=== PATIENT | female | born 1985 | race Caucasian/White ===

== ENCOUNTER 2016-10-25 00:30 | Inpatient (IN) | payer OTHER ==
[2016-10-25] MEDS ORDERED: WITCH HAZEL 50% (TUCKS) 40 PAD/JAR PAD TP PRN (01:32)
[2016-10-25] MEDS ORDERED: BENZOCAINE 28 GM HEMORRHOIDAL OINTMENT TP PRN (01:32)
[2016-10-25] MEDS ORDERED: BENZOCAINE 20% 57 GM BOTTLE TP PRN (01:32)
[2016-10-25] MEDS ORDERED: BISACODYL 10 MG SUPP.RECT RC PRN (01:32)
[2016-10-25] MEDS ORDERED: METHYLERGONOVINE MALEATE 0.2 MG/1 ML AMP IM PRN (01:32)
--- NOTE | 2016-10-25 01:37 | HP ---
Admitting History and Physical - Admission Chief Complaint: labor pains History of Present Illness: 31 y/o at term returns with contractions and fully dilated. Pt of [facility]. History Source: Patient Limitations to Obtaining History: No Limitations - Past Medical History W[employer]: No: Alzheimer's, CVA, Dementia, Migraine, Multiple Sclerosis, Peripheral Neuropathy, Parkinson's, Seizure, Syncope, TIA, Vertigo, Other Cardiovascular: No: AFIB, Aneurysm, Aortic Insufficiency, Aortic Stenosis, CAD, CHF, Deep Vein Thrombosis, HTN, Hyperlipdemia, [place], Mitral Insufficiency, Mitral Stenosis, Murmur, Pulmonary Hypertension, Other Pulmonary: No: Asthma, Bronchitis, Cancer, COPD, O2 Dependent, Pneumonia, Previously Intubated, Pulmonary Embolus, Pulmonary Fibrosis, Sleep Apnea, Other Gastrointestinal: No: Ascites, Cancer, Constipation, Crohn's Disease, Diverticulitis, Diverticulosis, Esophageal Varices, Gastritis, GERD, GI Bleed, Hemorrhoids, Hiatal Hernia, Inflamatory Bowel Disease, Irritable Bowel Disease, Pancreatitis, Peptic Ulcer Disease, Ulcerative Colitis, Other Hepatobiliary: No: Cirrhosis, Cholelithiasis, Cholecystitis, Choledocholithiasis , Hepatitis A, Hepatitis B, Hepatitis C, Other Renal/: No: Renal Failure, Renal Inusuff, BPH, Cancer, Hematuria, Hemodialysis , Neurogenic Bladder, Renal Calculi, UTI, Other Reproductive: No: Ectopic , Endometriosis, Fibroids, PID, Polycystic Ovary Syndrome, Postmenopausal, Other Heme/Onc: No: Anemia, B12 Deficiency, Bleeding Disorder, Cancer, Current Chemotherapy, Current Radiation Therapy, Hemochromatosis, Hypercoaguable State, Myeloproliferative Synd, Sickle Cell Disease, Sickle Cell Trait, Thrombocytopenia, Other Infectious Disease: No: AIDS, C-Diff, Herpes Zoster, HIV, MRSA, STD's, Tuberculosis, VREF, Other Psych: No: Addictions, Anxiety, Bipolar, Depression, Panic, Psychosis, Schizophrenia, Other Musculoskeletal: No: Bursitis, Chronic low back pain, Hemiparesis, Hemiplegia, Osteoarthritis, Paraplegia, Other Endocrine: No: Crisp's Disease, Flo's Disease, Diabetes Insipidus, Diabetes Mellitus, Hyperparathyroidism, Hyperthyroidism, Hypothyroidism, Osteopenia, SIADH, Other Dermatology: No: Basal Cell, Cellulitis, Eczema, Melanoma, Psoriasis, Squamous Cell, Other - Past Surgical History Past Surgical History: No: None, AAA Repair, AICD, Amputation, Appendectomy, Arthrosocopy, AV Fistula/Graft, Bariatric Surgery, Breast Biopsy, Bypass, CABG, Carotid Endarterectomy, Cataract Removal, Cholecystectomy, Colectomy, Colonoscopy, Colostomy, Craniotomy, , Cystectomy, Hernia Repair, Hysterectomy, Ileal Conduit, Ileosotomy, Joint Replacement, Kidney Transplant, Laminectomy, Liver Transplant, Mastectomy, Nephrectomy, Oopherectomy, Orchiectomy, Permanent Pacemaker, Prostatectomy, Splenectomy, Stent, Thoracotomy , TURP, Tonsillectomy, Tubal Ligation, Upper Endoscopy, Valve Replacement, Vasectomy, Vein Stripping/Ligation - Advance Directives Advance Directives: No: Living Will, Health Care Proxy, DNR, Organ Donor, Tissue Donor, MOLST - Smoking History Smoking history: Never smoked - Alcohol/Substance Use Hx Alcohol Use: No History of Substance Use: denies: None, Cocaine, Heroin, Marijuana, Prescription , Tranquilizers - Social History Usual Living Arrangement: No: Alone, With Spouse, With Parent, With Significant Other, With Child, Assisted Living, Intermediate, Other Home Medications - Allergies Allergies/Adverse Reactions: Allergies Allergy/AdvReac Type Severity Reaction Status Date / Time Penicillins Allergy Severe Swelling Verified 10/24/16 13:19 acetaminophen [From Tylenol] Allergy Mild Rash Verified 10/24/16 13:19 ibuprofen Allergy Mild Rash Verified 10/24/16 13:19 - Home Medications Home Medications: Ambulatory Orders Ferrous Sulfate 325 mg PO DAILY 10/24/16 Pnv95/Ferrous Fumarate/FA [ Vitamin Tablet] 1 each PO DAILY 10/24/16 Review of Systems - Review of Systems Constitutional: reports: No Symptoms Eyes: reports: No Symptoms HENT: reports: No Symptoms Neck: reports: No Symptoms Cardiovascular: reports: No Symptoms Respiratory: reports: No Symptoms Gastrointestinal: reports: No Symptoms Genitourinary: reports: No Symptoms Breasts: reports: No Symptoms Reported Musculoskeletal: reports: No Symptoms Integumentary: reports: No Symptoms Neurological: reports: No Symptoms Endocrine: reports: No Symptoms Hematology/Lymphatic: reports: No Symptoms Psychiatric: reports: No Symptoms Physical Examination Constitutional: Yes: Well Nourished Eyes: Yes: WNL HENT: Yes: WNL Neck: Yes: WNL Cardiovascular: Yes: WNL Respiratory: Yes: WNL Gastrointestinal: Yes: WNL ...Rectal Exam: Yes: WNL Renal/: Yes: WNL Breast(s): Yes: WNL Musculoskeletal: Yes: WNL Extremities: Yes: WNL Integumentary: Yes: WNL Assessment/Plan as above cat 1 tracing fully dilated willdeliver
[2016-10-25] MEDS ORDERED: OXYTOCIN 20 UNITS in 0.9% NS 1,000 ML IV SCH (01:45)
[2016-10-25] MEDS ORDERED: ELECTROLYTE-148 SOLN 1,000 ML IV SCH (01:45)
[2016-10-25 01:52] LABS: BASOPHIL 0.3 % (0-2.0); EOSINOPHIL 1.1 % (0-4.5); MCH 26.6 pg (25.7-33.7); MCHC 33.2 g/dl (32.0-36.0); MEAN CELL VOLUME 80.3 fl (80-96); MEAN PLT VOLUME 8.7 fl (7.5-11.1); PLATELET COUNT 242 K/MM3 (134-434); RDW 16.1 % (11.6-15.6); WHITE BLOOD COUNT 9.3 K/mm3 (4.0-10.0)
[2016-10-25 02:05] LABS: INR 0.96 (0.82-1.09); PROTHROMBIN TIME (PATIENT) 10.6 SEC (9.98-11.88)
[2016-10-25 02:07] LABS: ACTIVATED PTT 29.8 SECONDS (26.9-34.4)
[2016-10-25 02:11] LABS: ANION GAP 11 (8-16); CALCIUM 8.7 mg/dL (8.5-10.1); CO2 22 mmol/L (21-32); CREATININE 0.7 mg/dL (0.55-1.02); GLUCOSE,RANDOM 104 mg/dL (74-106)
[2016-10-25 02:42] VITALS: BMI 36.7
[2016-10-25] MEDS: ACETAMINOPHEN 325 MG TABLET (FP) PO PRN ×5 (02:58→21:28)
[2016-10-25] MEDS: IBUPROFEN 600 MG TABLET (FP) PO PRN ×5 (02:59→21:28)
[2016-10-25] MEDS ORDERED: DIPHTH,PERTUSS(ACELL),TET 0.5 ML DISP.SYRIN IM ONE (10:00)
[2016-10-26] MEDS: ACETAMINOPHEN 325 MG TABLET (FP) PO PRN (03:20)
[2016-10-26] MEDS: IBUPROFEN 600 MG TABLET (FP) PO PRN (03:20)
--- NOTE | 2016-10-26 05:41 | PN ---
Post Progress Note Post Day: 1 Type of Delivery: Vital Signs: Vital Signs Temperature 98.1 F 10/25/16 20:35 Pulse Rate 63 10/25/16 20:35 Respiratory Rate 20 10/25/16 20:35 Blood Pressure 104/62 10/25/16 20:35 O2 Sat by Pulse Oximetry (%) 100 10/25/16 02:55 Breast Exam: Yes: Soft Uterus: Yes: Fundus Firm Abdomen/GI: Yes: Abdomen soft Lochia: Yes: Rubra Lochia, amount: Small Extremities: Yes: Calves non-tender Perineum: Yes: Intact - Labs Labs: CBC WBC 9.3 K/mm3 (4.0-10.0) 10/25/16 01:25 RBC 4.71 M/mm3 (3.60-5.2) 10/25/16 01:25 Hgb 12.5 GM/dL (10.7-15.3) 10/25/16 01:25 Hct 37.8 % (32.4-45.2) 10/25/16 01:25 MCV 80.3 fl (80-96) 10/25/16 01:25 MCH 26.6 pg (25.7-33.7) 10/25/16 01:25 MCHC 33.2 g/dl (32.0-36.0) 10/25/16 01:25 RDW 16.1 % (11.6-15.6) H 10/25/16 01:25 Plt Count 242 K/MM3 (134-434) D 10/25/16 01:25 MPV 8.7 fl (7.5-11.1) D 10/25/16 01:25 Neutrophils % 71.0 % (42.8-82.8) 10/25/16 01:25 Lymphocytes % 22.3 % (8-40) 10/25/16 01:25 Monocytes % 5.3 % (3.8-10.2) 10/25/16 01:25 Eosinophils % 1.1 % (0-4.5) 10/25/16 01:25 Basophils % 0.3 % (0-2.0) 10/25/16 01:25 Assessment/Plan doing well oon reg diet
[2016-10-26 08:23] LABS: BASOPHIL 0.7 % (0-2.0); EOSINOPHIL 2.6 % (0-4.5); MEAN CELL VOLUME 81.9 fl (80-96); MEAN PLT VOLUME 8.3 fl (7.5-11.1); NEUTROPHILS 60.3 % (42.8-82.8); PLATELET COUNT 228 K/MM3 (134-434); RDW 15.9 % (11.6-15.6); WHITE BLOOD COUNT 9.3 K/mm3 (4.0-10.0)
[2016-10-26 10:46] VITALS: BP 127/66; PULSE 66; TEMP 97.8
[2016-10-26] MEDS ORDERED: SENNOSIDES/DOCUSATE COMBO (SENNA PLUS) TABLET (UD) PO PRN (22:00)
== END 2016-10-26 13:00 | disposition home or self-care (01) | DRG 560 ==
LOC: JLDR 00:30 → J3W 04:00
PROVIDERS: ADMIT Obstetrics & Gynecology; ATTEND Obstetrics & Gynecology
PROC: 10E0XZZ Delivery of Products of Conception, External Approach (ICD-10-PCS; principal; 2016-10-25)
DX: O80 Encounter for full-term uncomplicated delivery (principal); Z3A.39 39 weeks gestation of pregnancy; Z37.0 Single live birth
CPT/HCPCS: 36415; 59409; 80048; 85025; 85610; 85730; 86593; 86850; 86900; 86901; 90715

== ENCOUNTER 2021-10-23 01:40 | Emergency (ER) | payer OTHER ==
[2021-10-23 02:03] VITALS: BMI 29.2
[2021-10-23] MEDS ORDERED: FAMOTIDINE 20 MG/50 ML IVPB 20 MG/50 ML MG IVPB ONE ×2 (03:11→03:21)
[2021-10-23] MEDS ORDERED: SUCRALFATE 1 GM TABLET (FP) PO ONE (03:11)
[2021-10-23] MEDS ORDERED: ACETAMINOPHEN 1000 MG/100 ML BAG IVPB ONE (03:11)
[2021-10-23] MEDS ORDERED: MAG HYDROX/AL HYDROX/SIMETH -MYLANTA- ORAL SUSPENSION PO ONE (03:11)
[2021-10-23] MEDS ORDERED: ONDANSETRON 4 MG/2 ML VIAL IVPUSH ONE (03:11)
[2021-10-23] MEDS ORDERED: SODIUM CHLORIDE 0.9% 500 ML INFUS.BAG IV ONE (03:12)
[2021-10-23] MEDS ORDERED: SUCRALFATE 1 GM TABLET (FP) ONE (03:20)
[2021-10-23] MEDS ORDERED: ONDANSETRON 4 MG/2 ML VIAL ONE (03:21)
[2021-10-23] MEDS ORDERED: MAG HYDROX/AL HYDROX/SIMETH 30 ML UNIT-DOSE CUP ONE (03:21)
[2021-10-23] MEDS ORDERED: ACETAMINOPHEN INJECTION 100 ML IVPB ONE (03:21)
[2021-10-23 03:49] LABS: BASO % 0.5 % (0-2.0); EOS % 1.3 % (0-4.5); HEMATOCRIT 40.9 % (32.4-45.2); HEMOGLOBIN 13.6 GM/dL (10.7-15.3); LYMPH % 20.5 % (8-40); MCH 26.3 pg (25.7-33.7); MCHC 33.3 g/dl (32.0-36.0); MEAN PLT VOLUME 7.3 fl (7.5-11.1); MONO % 5.2 % (3.8-10.2); NEUT % 72.5 % (42.8-82.8); PLATELET COUNT 330 10^3/uL (134-434); RBC 5.18 M/mm3 (3.60-5.2); RDW 14.6 % (11.6-15.6); WHITE BLOOD COUNT 10.9 K/mm3 (4.0-10.0)
[2021-10-23 04:11] LABS: ALBUMIN 3.7 g/dl (3.4-5.0); CALCIUM 9.8 mg/dL (8.5-10.1)
[2021-10-23 04:12] LABS: BLOOD UREA NITROGEN 6.4 mg/dL (7-18)
[2021-10-23 04:14] LABS: CREATININE 0.7 mg/dL (0.55-1.3)
[2021-10-23 04:16] LABS: BILIRUBIN,TOTAL 1.2 mg/dL (0.2-1); TOT PROT 7.4 g/dl (6.4-8.2)
[2021-10-23 06:57] LABS: EPI CELLS 13 /uL (0-25.1); HYALINE CASTS 0 /uL (0-3.1); URINE APPEARANCE CLEAR; URINE BACTERIA 38 /uL (0-1359); URINE BILIRUBIN NEGATIVE (NEGATIVE); URINE COLOR YELLOW; URINE GLUCOSE (UA) NEGATIVE (NEGATIVE); URINE KETONE NEGATIVE (NEGATIVE); URINE LEUK ESTERASE 1+ (NEGATIVE); URINE NITRITE NEGATIVE (NEGATIVE); URINE PROTEIN NEGATIVE (NEGATIVE); URINE RBC 20 /uL (0-23.9); URINE UROBILINOGEN 0.2 mg/dL (0.2-1.0); URINE WBC 25 /uL (0-25.8)
[2021-10-23 08:14] VITALS: RESP 18; TEMP 97.7
[2021-10-23] MEDS ORDERED: morphine SULFATE 4 MG/ML VIAL IVPUSH ONE (08:25)
[2021-10-23] MEDS ORDERED: morphine SULFATE 4 MG/ML VIAL ONE (09:47)
[2021-10-23 14:05] VITALS: BP 145/82; PULSE 70
== END 2021-10-23 14:05 | disposition home or self-care (01) ==
LOC: JER 01:40
PROC: 3E033GC Introduction of Other Therapeutic Substance into Peripheral Vein, Percutaneous Approach (ICD-10-PCS; principal; 2021-10-23)
DX: K80.20 Calculus of gallbladder without cholecystitis without obstruction (principal)
CPT/HCPCS: 36415; 71046-TC-FY; 74176-TC; 76705-TC; 80053; 81003; 83690; 84484; 84703; 85025; 87077; 87086; 93005; 93010; 99285-25